=== PATIENT | female | born 1970 | race Two or more races ===

== ENCOUNTER 2017-07-18 20:18 | Emergency (ER) | payer OTHER ==
[~2017-07-18] VITALS: Ht 154.9 cm; Wt 79.4 kg
[2017-07-18 20:30] VITALS: BP 120/72
== END 2017-07-18 20:56 | disposition home or self-care (01) ==
LOC: ER 20:24
DX: M54.6 Pain in thoracic spine (principal); Z98.890 Other specified postprocedural states
CPT/HCPCS: A4606; Z7502; Z7610

== ENCOUNTER 2018-03-08 01:15 | Emergency (ER) | payer OTHER ==
[~2018-03-08] VITALS: Ht 157.5 cm; Wt 79.4 kg
[2018-03-08] MEDS ORDERED: ACETAMINOPHEN ES 500 MG TABLET ONE (01:58)
[2018-03-08] MEDS ORDERED: ASPIRIN 81 MG TAB.CHEW ONE (01:58)
[2018-03-08] MEDS ORDERED: NITROGLYCERIN PACKET 1 GM PACKET ONE (01:59)
[2018-03-08] MEDS ORDERED: ACETAMINOPHEN ES 500 MG TABLET PO ONE (02:00)
[2018-03-08] MEDS ORDERED: NITROGLYCERIN PACKET 1 GM PACKET TD ONE (02:00)
[2018-03-08] MEDS ORDERED: ASPIRIN 81 MG TAB.CHEW PO ONE (02:00)
--- NOTE | 2018-03-08 02:45 | NUR ---
Pt came in c/o Chest Pain, rates it as 3-5 on scale. Pt is teary eyed but denies being anxious. She is A, O/4, able to ambulate by herself, on RA. Hooked on monitor.
[2018-03-08 02:48] LABS: BASOPHILS % (AUTO) 0.5 % (0.0-2.0); EOSINOPHILS % (AUTO) 0.9 % (0.0-6.0); HEMATOCRIT 40 % (33-45); HEMOGLOBIN 13.7 g/dL (11.5-14.8); LYMPHOCYTES % (AUTO) 48.4 % (20.0-44.0); MEAN CORPUSCULAR HGB CONC 34 g/dl (31.0-36.0); MEAN CORPUSCULAR VOLUME 87 fL (82-100); MONOCYTES # (AUTO) 0.4 /CMM (0.1-1.30); NEUTROPHILS # (AUTO) 2.6 /CMM (1.8-8.9); NEUTROPHILS % (AUTO) 43.2 % (43.0-81.0); PLATELET COUNT (AUTO) 192 /CMM (150-450); RED BLOOD CELL COUNT(AUTO) 4.62 MIL/uL (4.0-5.2); WHITE BLOOD COUNT (AUTO) 6.1 K/uL (4.3-11.0)
[2018-03-08 02:55] LABS: CALCIUM, SERUM 8.9 mg/dL (8.5-10.1); CARBON DIOXIDE 29 mmol/L (21-32); CHLORIDE 105 mmol/L (98-107); CREATININE 0.6 mg/dL (0.6-1.3); GLUCOSE 100 mg/dL (74-106); POTASSIUM 3.3 mmol/L (3.5-5.1); SODIUM SERUM 143 mmol/L (136-145); UREA NITROGEN, BLOOD 16 mg/dL (7-18)
[2018-03-08 03:08] LABS: ALANINE AMINOTRANSFERASE 32 U/L (12-78); ALBUMIN 3.8 g/dL (3.4-5.0); ALKALINE PHOSPHATASE 75 U/L (46-116); ASPARTATE AMINOTRANSFERASE 11 U/L (15-37); B-TYPE NATRIURETIC PEPTIDE 11 PG/ML (0-125); BILIRUBIN,DIRECT 0.1 mg/dL (0.0-0.2); BILIRUBIN,TOTAL 0.3 mg/dL (0.2-1.0); TOTAL PROTEIN, SERUM 6.7 g/dL (6.4-8.2)
--- NOTE | 2018-03-08 03:40 | NUR ---
pt states her chest pain down to 2/10 pn scale, son at BS
--- NOTE | 2018-03-08 04:30 | NUR ---
Pt states her chest is completely gone, wants to go home.
--- NOTE | 2018-03-08 04:39 | NUR ---
Pt ambulated to the BR with stand-by assist, no distress reported or noted.
--- NOTE | 2018-03-08 05:27 | NUR ---
Pt sleeping, arousable. Denies chest pain.
--- NOTE | 2018-03-08 06:29 | NUR ---
Pt resting comfortably, denies chest pain.
[2018-03-08 06:54] VITALS: BP 116/62
== END 2018-03-08 06:50 | disposition home or self-care (01) ==
LOC: ER 01:27
DX: R07.89 Other chest pain (principal); R94.31 Abnormal electrocardiogram [ECG] [EKG]; Z98.890 Other specified postprocedural states
CPT/HCPCS: 36415; 71045-TC; 80048-TC; 80076-TC; 83880; 84484-TC; 85025-TC; A4606; Z7610

== ENCOUNTER 2024-03-26 22:10 | Emergency (ER) | payer OTHER ==
[~2024-03-26] VITALS: Ht 157.5 cm; Wt 88.0 kg
[2024-03-26 22:34] VITALS: BP 128/75; TEMP 97.8; O2SAT 98
== END 2024-03-26 23:47 | disposition home or self-care (01) ==
LOC: ER 22:13
DX: J06.9 Acute upper respiratory infection, unspecified (principal); B97.89 Other viral agents as the cause of diseases classified elsewhere